=== PATIENT | female | born 1985 | race Caucasian/White ===

== ENCOUNTER → 2016-07-31 | Outpatient (REF) | payer OTHER ==
[2016-07-31 21:05] LABS: CONTROL LINE HCG INT CTR LINE PRESENT
== END ==
LOC: M LABDRWAD 19:50 → M LAB REF 19:50
DX: G43.719 Chronic migraine without aura, intractable, without status migrainosus (principal)

== ENCOUNTER 2016-10-09 15:11 | Emergency (ER) | payer OTHER ==
[~2016-10-09] VITALS: Ht 157.5 cm; Wt 61.2 kg
[2016-10-09] MEDS ORDERED: AMIT10TA (15:22)
[2016-10-09] MEDS ORDERED: [UNRECOGNIZED DRUG - OTHER] IM (15:22)
[2016-10-09] MEDS ORDERED: ZOLP12.515 (15:22)
[2016-10-09] MEDS ORDERED: BOTO200I (15:22)
[2016-10-09] MEDS ORDERED: MAXA10TA14 PO (15:22)
[2016-10-09 18:49] LABS: BASO % 0.3 % (0.0-1.0); EOS % 0.5 % (0.0-3.0); LARGE UNSTAINED CELL # 0.1 K/mm3 (0.0-0.4); LYMPH # 1.9 K/mm3 (1.5-6.5); LYMPH % 19.8 % (24.0-44.0); MEAN CORPUSCULAR HEMOGLOBIN 32.6 pg (27.0-33.0); MEAN CORPUSCULAR HGB CONC 34.2 g/dl (32.0-36.5); MEAN CORPUSCULAR VOLUME 95.3 fl (80.0-96.0); MONO # 0.4 K/mm3 (0.0-0.8); MONO % 3.6 % (0.0-5.0); NEUTROPHILS # 7.2 K/mm3 (1.8-7.7); NEUTROPHILS % 74.8 % (36.0-66.0); PLATELET COUNT, AUTOMATED 279 k/mm3 (150-450); RED CELL DISTRIBUTION WIDTH 11.7 % (11.5-14.5); WHITE BLOOD COUNT 9.6 K/mm3 (4.0-10.0)
[2016-10-09 19:26] LABS: ANION GAP 9 MEQ/L (8-16); BLOOD UREA NITROGEN 9 MG/DL (7-18); CARBON DIOXIDE LEVEL 25 MEQ/L (21-32); CHLORIDE LEVEL 103 MEQ/L (98-107); CREATININE FOR GFR 0.83 MG/DL (0.55-1.02); GLOMERULAR FILTRATION RATE > 60.0 (>60); GLUCOSE, FASTING 107 MG/DL (70-105); HCG, SERUM QUANTITATIVE 992 MIU/ML; SODIUM LEVEL 137 MEQ/L (136-145)
--- NOTE | 2016-10-09 19:38 | REP ---
Clinical: Pelvic pain/cramping and spotting. Technique: First trimester transabdominal and transvaginal ultrasound examination with color Doppler evaluation. Findings: Bladder is collapsed. Heterogeneous anteverted uterus measures 7.2 x 3.5 x 4.5 cm . The endometrial complex measures 6.5 mm thickness. No discrete uterine or endometrial abnormalities are appreciated. No intrauterine identified. Bilateral ovaries are normal in appearance and vascularity without evidence for torsion. Right ovary measures 2.6 x 1.5 x 1.9 cm; R I = 0.53 . Left ovary measures 2.9 x 2.1 x 1.7 cm ; R I = 0.38. No pelvic fluid or adnexal mass lesion. No definite evidence for ectopic . Impression: 1. Heterogeneous anteverted uterus without intrauterine identified. Differential diagnosis includes spontaneous as well as early intrauterine . Correlation with serial HCG levels recommended and repeat ultrasound as necessary. 2. Normal maternal ovaries without evidence for torsion. Signed by James Orona MD 10/09/2016 07:30 P
[2016-10-09 20:22] VITALS: BP 141/90
== END 2016-10-09 20:31 | disposition home or self-care (01) ==
LOC: M ED 16:39
DX: N93.9 Abnormal uterine and vaginal bleeding, unspecified (principal); G43.909 Migraine, unspecified, not intractable, without status migrainosus; Z79.899 Other long term (current) drug therapy

== ENCOUNTER → 2017-03-15 | Outpatient (REF) | payer OTHER ==
[~2017-03-15] MED LIST: AMIT10TA; BOTO200I; MAXA10TA14 PO; ZOLP12.515; [UNRECOGNIZED DRUG - OTHER] IM
== END ==
LOC: M LAB REF 10:09
PROVIDERS: ATTEND Physician Assistant
DX: N39.0 Urinary tract infection, site not specified (principal)

== ENCOUNTER → 2018-04-11 | Outpatient (REF) | payer OTHER | LOC: M LAB REF 19:08 | DX: N39.0 Urinary tract infection, site not specified (principal) ==